=== PATIENT | female | born 1935 | race Caucasian/White ===

== ENCOUNTER 2019-10-20 00:32 | Inpatient (IN) | payer OTHER, MEDICAID ==
[~2019-10-20] VITALS: Ht 160 cm; Wt 70.5 kg
[2019-10-20] MEDS ORDERED: ONDANSETRON HCL 4MG/2ML INJ IV STA (00:52)
[2019-10-20] MEDS ORDERED: SODIUM CHLORIDE 0.9% 1,000 ML IV ONE (00:52)
[2019-10-20] MEDS ORDERED: FAMOTIDINE 20MG/2ML VIAL IV ONE (01:00)
[2019-10-20 01:12] LABS: CHLORIDE 100 mEq/L (98-107)
[2019-10-20 01:15] LABS: BASOPHILS % 0.3 % (0.0-2.0); EOSINOPHILS % 0.3 % (0.0-5.0); HEMATOCRIT. 41.7 % (36.0-48.0); MEAN CORPUSCULAR HEMOGLOBIN 29.3 pg (28.0-32.0); MEAN CORPUSCULAR VOLUME 87.4 fL (81.0-99.0); MEAN PLATELET VOLUME 8.6 fl (7.4-10.4); MONOCYTES % 3.8 % (2.0-8.0); NEUTROPHILS % 83.6 % (40.0-76.0); PLATELET 195 x1000/uL (130-400); RED BLOOD CELL COUNT 4.77 mill/uL (4.2-5.4); RED CELL DISTRIBUTION WIDTH 13.6 % (11.6-14.6)
[2019-10-20] MEDS ORDERED: PIPERACILLIN/TAZ 3.375G PREMIX 50 ML IV ONE ×2 (01:30→09:00)
[2019-10-20 01:48] LABS: CLARITY URINE CLEAR (CLEAR); COLOR URINE DARK YELLOW (YELLOW); KETONES URINE NEGATIVE (NEGATIVE); LEUKOCYTE ESTERASE URINE NEGATIVE (NEGATIVE); NITRITE URINE NEGATIVE (NEGATIVE); OCCULT BLOOD URINE NEGATIVE (NEGATIVE); PH URINE 6.5 (4.5-8.0); PROTEIN URINE TRACE (NEGATIVE); SPECIFIC GRAVITY URINE 1.022 (1.005-1.030)
[2019-10-20 01:52] LABS: INR 1.1; PROTHROMBIN TIME 11.7 sec (9.6-11.0)
[2019-10-20] MEDS ORDERED: SODIUM CHLORIDE 0.9% 1000ML BAG (SEPSIS BOLUS) IV ONE (02:15)
[2019-10-20] MEDS ORDERED: MORPHINE SULFATE 4 MG/ML CPJ (NOT FOR IM USE) IV ONE (02:30)
[2019-10-20] MEDS: MORPHINE SULFATE 2 MG/ML CPJ (NOT FOR IM USE) IV PRN ×2 (04:41→06:13)
[2019-10-20] MEDS ORDERED: HYDRALAZINE 20MG/ML VIAL IV PRN (09:00)
[2019-10-20] MEDS ORDERED: ONDANSETRON HCL 4MG/2ML INJ IV PRN (09:00)
[2019-10-20] MEDS ORDERED: DEXTROSE 50% WATER 50ML SYRINGE IV PRN (09:00)
[2019-10-20] MEDS: SODIUM CHLORIDE 0.9% 1,000 ML IV SCH ×2 (10:00→18:02)
[2019-10-20] MEDS: BLOOD SUGAR DIAGNOSTIC STRIP TEST SCH ×4 (10:00→21:59)
[2019-10-20] MEDS: PANTOPRAZOLE SODIUM 40 MG/VIAL IV SCH (11:18)
[2019-10-20 12:09] LABS: HEPATITIS B SURFACE ANTIGEN NEGATIVE
[2019-10-20 12:30] VITALS: BP 138/68
[2019-10-20 12:39] LABS: HEPATITIS A AB IGM NEGATIVE (NEGATIVE)
[2019-10-20] MEDS: INSULIN LISPRO 100 UNITS/ML SUBCUT SCH ×3 (13:00→21:00)
[2019-10-20] MEDS ORDERED: LORAZEPAM 2MG/ML CPJ IM ONE (13:30)
[2019-10-20] MEDS: PIPERACILLIN/TAZOBACTAM 3.375 G in DEXT 5% WATER 100 ML IV SCH ×3 (14:00→23:32)
[2019-10-20] MEDS ORDERED: METF500S7 PO (14:39)
[2019-10-20] MEDS ORDERED: QUET25TA34 PO (14:39)
[2019-10-20] MEDS ORDERED: LOSA1TAB37 PO (14:39)
[2019-10-20] MEDS ORDERED: AMLO10TA80 PO (14:39)
[2019-10-20] MEDS ORDERED: PIPERACILLIN/TAZOBACTAM 3.375 G in DEXT 5% WATER 100 ML IV SCH (15:00)
[2019-10-20 16:00] VITALS: BP 142/59
[2019-10-20 20:00] VITALS: BP 133/68
[2019-10-20] MEDS: QUETIAPINE FUMARATE 25MG TABLET PO PRN (23:32)
[2019-10-21] VITALS: BP 139/67
[2019-10-21 04:00] VITALS: BP 144/85
[2019-10-21] MEDS: SODIUM CHLORIDE 0.9% 1,000 ML IV SCH ×2 (04:12→14:05)
[2019-10-21] MEDS: PIPERACILLIN/TAZOBACTAM 3.375 G in DEXT 5% WATER 100 ML IV SCH ×3 (05:28→18:17)
[2019-10-21 07:03] LABS: BASOPHILS % 0.1 % (0.0-2.0); CHLORIDE 106 mEq/L (98-107); EOSINOPHILS % 0.3 % (0.0-5.0); HEMATOCRIT. 37.3 % (36.0-48.0); HEMOGLOBIN. 12.6 g/dL (12.0-16.0); LYMPHOCYTES % 13.1 % (20.0-50.0); MEAN CORPUSCULAR HEMOGLOBIN 29.5 pg (28.0-32.0); MEAN CORPUSCULAR VOLUME 87.5 fL (81.0-99.0); MEAN PLATELET VOLUME 8.9 fl (7.4-10.4); MONOCYTES % 5.7 % (2.0-8.0); NEUTROPHILS % 80.8 % (40.0-76.0); PLATELET 167 x1000/uL (130-400); RED BLOOD CELL COUNT 4.26 mill/uL (4.2-5.4); RED CELL DISTRIBUTION WIDTH 13.8 % (11.6-14.6)
[2019-10-21] MEDS: BLOOD SUGAR DIAGNOSTIC STRIP TEST SCH ×4 (07:05→21:19)
[2019-10-21] MEDS: INSULIN LISPRO 100 UNITS/ML SUBCUT SCH ×4 (07:05→21:00)
[2019-10-21 08:00] VITALS: BP 105/66
[2019-10-21] MEDS ORDERED: POTASSIUM CHLORIDE 20MEQ TABLET SR PO NR (08:15)
[2019-10-21] MEDS: LORAZEPAM 2MG/ML CPJ IV PRN ×2 (11:31→17:53)
[2019-10-21 12:00] VITALS: BP 114/59
[2019-10-21] MEDS: PANTOPRAZOLE SODIUM 40 MG/VIAL IV SCH (13:07)
[2019-10-21] MEDS ORDERED: POTASSIUM CHLORIDE INJ 40 MEQ in DEXT 5% WATER 250 ML IV NR (14:00)
[2019-10-21 16:00] VITALS: BP 121/67
[2019-10-21] MEDS: METRONIDAZOLE 500 MG PREMIX 100 ML IV SCH (18:17)
[2019-10-21 20:00] VITALS: BP 154/84
[2019-10-22] VITALS (7 sets, daily range): BP systolic 124–210; BP diastolic 62–131
[2019-10-22] MEDS: PIPERACILLIN/TAZOBACTAM 3.375 G in DEXT 5% WATER 100 ML IV SCH ×4 (00:39→18:14)
[2019-10-22] MEDS: METRONIDAZOLE 500 MG PREMIX 100 ML IV SCH ×3 (02:10→17:38)
[2019-10-22] MEDS: SODIUM CHLORIDE 0.9% 1,000 ML IV SCH ×2 (02:10→10:25)
[2019-10-22] MEDS: BLOOD SUGAR DIAGNOSTIC STRIP TEST SCH ×4 (06:21→21:29)
[2019-10-22] MEDS: INSULIN LISPRO 100 UNITS/ML SUBCUT SCH ×4 (06:21→21:00)
[2019-10-22 07:20] LABS: CHLORIDE 111 mEq/L (98-107)
[2019-10-22 07:45] LABS: BASOPHILS % 0.2 % (0.0-2.0); EOSINOPHILS % 2.2 % (0.0-5.0); HEMATOCRIT. 35.1 % (36.0-48.0); HEMOGLOBIN. 11.9 g/dL (12.0-16.0); MEAN CORPUSCULAR HEMOGLOBIN 29.8 pg (28.0-32.0); MEAN CORPUSCULAR VOLUME 87.6 fL (81.0-99.0); MEAN PLATELET VOLUME 8.6 fl (7.4-10.4); MONOCYTES % 5.6 % (2.0-8.0); PLATELET 176 x1000/uL (130-400); RED CELL DISTRIBUTION WIDTH 14.1 % (11.6-14.6)
[2019-10-22] MEDS: PANTOPRAZOLE SODIUM 40 MG/VIAL IV SCH (08:54)
[2019-10-22] MEDS: LORAZEPAM 2MG/ML CPJ IV PRN ×2 (08:54→14:57)
[2019-10-22 13:02] LABS: AMYLASE 193 IU/L (25-115)
[2019-10-22] MEDS: QUETIAPINE FUMARATE 25MG TABLET PO PRN (23:55)
[2019-10-23] VITALS (7 sets, daily range): BP systolic 126–189; BP diastolic 50–101
[2019-10-23] MEDS: PIPERACILLIN/TAZOBACTAM 3.375 G in DEXT 5% WATER 100 ML IV SCH ×4 (00:03→17:23)
[2019-10-23] MEDS: METRONIDAZOLE 500 MG PREMIX 100 ML IV SCH ×3 (01:27→16:17)
[2019-10-23] MEDS: LORAZEPAM 2MG/ML CPJ IV PRN ×2 (01:39→20:34)
[2019-10-23] MEDS: INSULIN LISPRO 100 UNITS/ML SUBCUT SCH ×4 (05:45→21:00)
[2019-10-23] MEDS: BLOOD SUGAR DIAGNOSTIC STRIP TEST SCH ×4 (05:45→21:15)
[2019-10-23 06:12] LABS: CHLORIDE 113 mEq/L (98-107)
[2019-10-23 06:41] LABS: BASOPHILS % 0.3 % (0.0-2.0); HEMATOCRIT. 35.7 % (36.0-48.0); HEMOGLOBIN. 12.1 g/dL (12.0-16.0); LYMPHOCYTES % 16.6 % (20.0-50.0); MEAN CORPUSCULAR HEMOGLOBIN 29.7 pg (28.0-32.0); MEAN CORPUSCULAR VOLUME 87.4 fL (81.0-99.0); MEAN PLATELET VOLUME 8.5 fl (7.4-10.4); MONOCYTES % 5.3 % (2.0-8.0); NEUTROPHILS % 76.8 % (40.0-76.0); PLATELET 181 x1000/uL (130-400); RED BLOOD CELL COUNT 4.09 mill/uL (4.2-5.4); RED CELL DISTRIBUTION WIDTH 14.3 % (11.6-14.6)
[2019-10-23] MEDS: PANTOPRAZOLE SODIUM 40 MG/VIAL IV SCH (08:14)
[2019-10-23] MEDS ORDERED: CLONIDINE HCL 0.1MG/24HR PATCH TD SCH (16:00)
[2019-10-23] MEDS: SODIUM CHLORIDE 0.9% 1,000 ML IV SCH (16:18)
[2019-10-24] VITALS: BP 160/92
[2019-10-24] MEDS: SODIUM CHLORIDE 0.9% 1,000 ML IV SCH ×2 (01:03→13:57)
[2019-10-24] MEDS: PIPERACILLIN/TAZOBACTAM 3.375 G in DEXT 5% WATER 100 ML IV SCH ×4 (01:03→17:30)
[2019-10-24] MEDS: METRONIDAZOLE 500 MG PREMIX 100 ML IV SCH ×3 (01:59→18:04)
[2019-10-24 04:00] VITALS: BP 163/91
[2019-10-24] MEDS: LORAZEPAM 2MG/ML CPJ IV PRN (04:05)
[2019-10-24 04:33] VITALS: BP 145/85
[2019-10-24 06:11] LABS: CHLORIDE 107 mEq/L (98-107)
[2019-10-24] MEDS: INSULIN LISPRO 100 UNITS/ML SUBCUT SCH ×4 (06:19→21:00)
[2019-10-24] MEDS: BLOOD SUGAR DIAGNOSTIC STRIP TEST SCH ×4 (06:19→21:00)
[2019-10-24 06:44] LABS: BASOPHILS % 0.3 % (0.0-2.0); HEMATOCRIT. 38.5 % (36.0-48.0); LYMPHOCYTES % 9.5 % (20.0-50.0); MEAN CORPUSCULAR HEMOGLOBIN 29.3 pg (28.0-32.0); MEAN CORPUSCULAR VOLUME 86.9 fL (81.0-99.0); MEAN PLATELET VOLUME 8.1 fl (7.4-10.4); MONOCYTES % 8.1 % (2.0-8.0); NEUTROPHILS % 81.1 % (40.0-76.0); PLATELET 196 x1000/uL (130-400); RED BLOOD CELL COUNT 4.43 mill/uL (4.2-5.4); RED CELL DISTRIBUTION WIDTH 14.3 % (11.6-14.6)
[2019-10-24 08:00] VITALS: BP 172/94
[2019-10-24] MEDS: PANTOPRAZOLE SODIUM 40 MG/VIAL IV SCH (09:06)
[2019-10-24] MEDS ORDERED: DILTIAZEM HCL 5MG/ML 5ML VIAL IV PRN (11:15)
[2019-10-24 12:00] VITALS: BP 158/77
[2019-10-24] MEDS ORDERED: POTASSIUM CHLORIDE INJ 40 MEQ in DEXT 5% WATER 250 ML IV NR (12:30)
[2019-10-24] MEDS ORDERED: CLONIDINE HCL 0.3MG/24HR PATCH TD SCH (13:00)
[2019-10-24 20:00] VITALS: BP 152/84
[2019-10-24] MEDS: DEXT 5%/0.45% NACL KCL 20MEQ/L 1,000 ML IV SCH (20:00)
[2019-10-25] VITALS: BP 130/75
[2019-10-25] MEDS: PIPERACILLIN/TAZOBACTAM 3.375 G in DEXT 5% WATER 100 ML IV SCH ×3 (00:31→11:59)
[2019-10-25] MEDS: METRONIDAZOLE 500 MG PREMIX 100 ML IV SCH ×3 (01:34→17:00)
[2019-10-25 04:00] VITALS: BP 97/41
[2019-10-25] MEDS: DEXT 5%/0.45% NACL KCL 20MEQ/L 1,000 ML IV SCH ×2 (06:35→17:04)
[2019-10-25] MEDS: INSULIN LISPRO 100 UNITS/ML SUBCUT SCH ×4 (06:35→21:40)
[2019-10-25] MEDS: BLOOD SUGAR DIAGNOSTIC STRIP TEST SCH ×4 (06:35→21:32)
[2019-10-25 07:44] LABS: BASOPHILS % 0.3 % (0.0-2.0); HEMATOCRIT. 37.1 % (36.0-48.0); HEMOGLOBIN. 12.6 g/dL (12.0-16.0); LYMPHOCYTES % 30.1 % (20.0-50.0); MEAN CORPUSCULAR VOLUME 88.3 fL (81.0-99.0); MEAN PLATELET VOLUME 8.1 fl (7.4-10.4); MONOCYTES % 11.2 % (2.0-8.0); NEUTROPHILS % 55.4 % (40.0-76.0); PLATELET 199 x1000/uL (130-400); RED BLOOD CELL COUNT 4.21 mill/uL (4.2-5.4); RED CELL DISTRIBUTION WIDTH 14.4 % (11.6-14.6)
[2019-10-25 07:56] LABS: CHLORIDE 110 mEq/L (98-107)
[2019-10-25 08:00] VITALS: BP 123/63
[2019-10-25] MEDS: PANTOPRAZOLE SODIUM 40 MG/VIAL IV SCH (09:52)
[2019-10-25 12:00] VITALS: BP 140/62
[2019-10-25] MEDS ORDERED: LIDOCAINE HCL 1% 20ML VIAL (Pyxis) INJ ONE (15:33)
[2019-10-25] MEDS ORDERED: SKIN ADHESIVE 0.7 GM EA TOP ONE (15:33)
[2019-10-25] MEDS ORDERED: BUPIVACAINE HCL/PF 0.5% (5MG/ML) 10ML ONE (15:33)
[2019-10-25] MEDS ORDERED: MIDAZOLAM HCL 2 MG/2 ML VIAL ONE (17:42)
[2019-10-25] MEDS ORDERED: ETOMIDATE 2MG/ML 10ML VIAL IV ONE (17:42)
[2019-10-25] MEDS ORDERED: LIDOCAINE HCL/PF 1% 10 MG/ML 5ML VIAL ONE (17:42)
[2019-10-25] MEDS ORDERED: FENTANYL CITRATE/PF 50MCG/ML 2ML VIAL ONE (17:42)
[2019-10-25] MEDS ORDERED: ROCURONIUM BROMIDE 10MG/ML VIAL 5ML IV ONE (17:50)
[2019-10-25] MEDS ORDERED: SUCCINYLCHOLINE CHLORIDE 200MG/10ML IV ONE ×2 (17:56→18:03)
[2019-10-25] MEDS ORDERED: PHENYLEPHRINE HCL 10 MG/ML 1ML (IV VIAL) IV ONE (18:03)
[2019-10-25] MEDS ORDERED: LIDOCAINE HCL 2% JELLY 5ML ONE (18:06)
[2019-10-25] MEDS ORDERED: CEFAZOLIN SODIUM 1000MG/VIAL ONE (18:14)
[2019-10-25] MEDS ORDERED: EPHEDRINE SULFATE 50MG/ML VIAL ONE (18:21)
[2019-10-25] MEDS ORDERED: SODIUM CHLORIDE 0.9% 10ML VIAL ONE ×2 (18:21→18:49)
[2019-10-25] MEDS ORDERED: GLYCOPYRROLATE 0.2 MG/ML 2ML VIAL ONE (18:22)
[2019-10-25] MEDS ORDERED: DEXAMETHASONE 4MG/ML 1ML VIAL ONE (18:33)
[2019-10-25] MEDS ORDERED: ESMOLOL HCL 10MG/ML 10ML VIAL IV ONE (18:34)
[2019-10-25] MEDS ORDERED: LABETALOL HCL 5MG/ML VIAL 20ML IV ONE (18:39)
[2019-10-25] MEDS ORDERED: HYDRALAZINE 20MG/ML VIAL ONE (18:49)
[2019-10-25] MEDS ORDERED: ONDANSETRON HCL 4MG/2ML INJ ONE (19:44)
[2019-10-25] MEDS ORDERED: NEOSTIGMINE METHYLSULFATE 1MG/ML 10 ML VIAL ONE (19:46)
[2019-10-25] MEDS ORDERED: HYDROMORPHONE HCL/PF 2MG/ML CPJ IV PRN (20:00)
[2019-10-25] MEDS ORDERED: HYDROMORPHONE HCL/PF 2MG/ML CPJ ONE (20:05)
[2019-10-25] MEDS ORDERED: MEPERIDINE HCL/PF 25MG/ML CPJ IV PRN (20:15)
[2019-10-25 21:20] VITALS: BP 129/60
[2019-10-26] VITALS: BP 126/58
[2019-10-26] MEDS: METRONIDAZOLE 500 MG PREMIX 100 ML IV SCH ×2 (00:27→08:27)
[2019-10-26] MEDS: DEXT 5%/0.45% NACL KCL 20MEQ/L 1,000 ML IV SCH ×2 (01:00→11:52)
[2019-10-26 04:00] VITALS: BP 131/70
[2019-10-26 05:31] LABS: HEMATOCRIT. 37.3 % (36.0-48.0); HEMOGLOBIN. 12.4 g/dL (12.0-16.0); MEAN CORPUSCULAR HEMOGLOBIN 29.3 pg (28.0-32.0); MEAN PLATELET VOLUME 8.5 fl (7.4-10.4); PLATELET 212 x1000/uL (130-400); RED BLOOD CELL COUNT 4.23 mill/uL (4.2-5.4); RED CELL DISTRIBUTION WIDTH 14.8 % (11.6-14.6)
[2019-10-26 05:42] LABS: CHLORIDE 113 mEq/L (98-107)
[2019-10-26] MEDS: BLOOD SUGAR DIAGNOSTIC STRIP TEST SCH ×4 (05:56→21:11)
[2019-10-26] MEDS: INSULIN LISPRO 100 UNITS/ML SUBCUT SCH ×4 (06:18→21:00)
[2019-10-26 08:00] VITALS: BP 129/93
[2019-10-26] MEDS: PANTOPRAZOLE SODIUM 40 MG/VIAL IV SCH (08:27)
[2019-10-26] MEDS: MORPHINE SULFATE 2 MG/ML CPJ (NOT FOR IM USE) IV PRN ×2 (08:28→18:25)
[2019-10-26] MEDS ORDERED: MORPHINE SULFATE 2 MG/ML CPJ (NOT FOR IM USE) IV NR ×2 (11:45→21:30)
[2019-10-26 12:00] VITALS: BP 124/52
[2019-10-26] MEDS ORDERED: LORAZEPAM 2MG/ML CPJ IV PRN (13:15)
[2019-10-26] MEDS ORDERED: AMOX1TAB16 MT (14:08)
[2019-10-26] MEDS: PIPERACILLIN/TAZOBACTAM 3.375 G in DEXT 5% WATER 100 ML IV SCH ×2 (15:51→21:44)
[2019-10-26 15:55] LABS: BASOPHILS % 0.1 % (0.0-2.0); HEMATOCRIT. 35.7 % (36.0-48.0); HEMOGLOBIN. 11.9 g/dL (12.0-16.0); MEAN CORPUSCULAR HEMOGLOBIN 29.6 pg (28.0-32.0); MEAN CORPUSCULAR VOLUME 88.8 fL (81.0-99.0); MEAN PLATELET VOLUME 8.2 fl (7.4-10.4); MONOCYTES % 8.9 % (2.0-8.0); PLATELET 198 x1000/uL (130-400); RED BLOOD CELL COUNT 4.02 mill/uL (4.2-5.4); RED CELL DISTRIBUTION WIDTH 14.6 % (11.6-14.6)
[2019-10-26 16:00] VITALS: BP 123/66
[2019-10-26 20:00] VITALS: BP 154/86
[2019-10-26] MEDS: LORAZEPAM 2MG/ML CPJ IV PRN (20:36)
[2019-10-26] MEDS: QUETIAPINE FUMARATE 25MG TABLET PO PRN (23:25)
[2019-10-27] VITALS (7 sets, daily range): BP systolic 125–153; BP diastolic 60–87
[2019-10-27] MEDS: DEXT 5%/0.45% NACL KCL 20MEQ/L 1,000 ML IV SCH ×2 (00:48→16:31)
[2019-10-27] MEDS: PIPERACILLIN/TAZOBACTAM 3.375 G in DEXT 5% WATER 100 ML IV SCH ×2 (03:53→09:00)
[2019-10-27] MEDS: BLOOD SUGAR DIAGNOSTIC STRIP TEST SCH ×4 (06:35→21:00)
[2019-10-27] MEDS: INSULIN LISPRO 100 UNITS/ML SUBCUT SCH ×4 (06:44→21:00)
[2019-10-27 07:04] LABS: BASOPHILS % 0.2 % (0.0-2.0); EOSINOPHILS % 0.2 % (0.0-5.0); HEMATOCRIT. 36.9 % (36.0-48.0); HEMOGLOBIN. 12.3 g/dL (12.0-16.0); LYMPHOCYTES % 16.1 % (20.0-50.0); MEAN CORPUSCULAR HEMOGLOBIN 29.3 pg (28.0-32.0); MEAN CORPUSCULAR VOLUME 87.7 fL (81.0-99.0); MEAN PLATELET VOLUME 8.4 fl (7.4-10.4); MONOCYTES % 7.6 % (2.0-8.0); NEUTROPHILS % 75.9 % (40.0-76.0); PLATELET 179 x1000/uL (130-400); RED BLOOD CELL COUNT 4.21 mill/uL (4.2-5.4); RED CELL DISTRIBUTION WIDTH 14.7 % (11.6-14.6)
[2019-10-27 07:26] LABS: CHLORIDE 109 mEq/L (98-107)
[2019-10-27 08:49] LABS: PLATELET ESTIMATE NORMAL
[2019-10-27] MEDS: PANTOPRAZOLE SODIUM 40 MG/VIAL IV SCH (08:56)
[2019-10-27] MEDS ORDERED: POTASSIUM CHLORIDE 20MEQ TABLET SR PO SCH (09:45)
[2019-10-27] MEDS ORDERED: METOPROLOL TARTRATE 25MG TABLET PO SCH (09:45)
[2019-10-27] MEDS: MORPHINE SULFATE 2 MG/ML CPJ (NOT FOR IM USE) IV PRN ×2 (09:54→15:32)
[2019-10-27] MEDS ORDERED: METO-539 MT (11:18)
[2019-10-27] MEDS ORDERED: METOPROLOL TARTRATE 50MG TABLET PO SCH (11:30)
[2019-10-27] MEDS: AMLODIPINE 2.5MG TABLET PO SCH ×2 (11:30→11:50)
[2019-10-27 12:33] LABS: HEMATOCRIT. 35.5 % (36.0-48.0); HEMOGLOBIN. 11.9 g/dL (12.0-16.0); MEAN CORPUSCULAR HEMOGLOBIN 29.3 pg (28.0-32.0); MEAN CORPUSCULAR VOLUME 87.3 fL (81.0-99.0); PLATELET 192 x1000/uL (130-400); RED BLOOD CELL COUNT 4.07 mill/uL (4.2-5.4); RED CELL DISTRIBUTION WIDTH 14.3 % (11.6-14.6)
[2019-10-27 13:48] LABS: PLATELET ESTIMATE NORMAL
[2019-10-27] MEDS ORDERED: LEVOFLOXACIN 500MG PREMIX 100 ML IV SCH (15:00)
[2019-10-27] MEDS: METRONIDAZOLE 500 MG PREMIX 100 ML IV SCH ×2 (15:16→22:09)
[2019-10-27] MEDS: LORAZEPAM 2MG/ML CPJ IV PRN (18:53)
[2019-10-28] VITALS: BP 142/86
[2019-10-28] MEDS: METOPROLOL TARTRATE 50MG TABLET PO SCH ×3 (00:24→20:31)
[2019-10-28] MEDS: AMLODIPINE 2.5MG TABLET PO SCH ×2 (00:24→08:58)
[2019-10-28] MEDS: DEXT 5%/0.45% NACL KCL 20MEQ/L 1,000 ML IV SCH ×2 (00:26→10:10)
[2019-10-28] MEDS: MORPHINE SULFATE 2 MG/ML CPJ (NOT FOR IM USE) IV PRN ×3 (01:24→16:23)
[2019-10-28 04:00] VITALS: BP 151/76
[2019-10-28] MEDS: LORAZEPAM 2MG/ML CPJ IV PRN (05:20)
[2019-10-28] MEDS: METRONIDAZOLE 500 MG PREMIX 100 ML IV SCH ×3 (05:21→20:30)
[2019-10-28 06:17] LABS: BASOPHILS % 0.2 % (0.0-2.0); EOSINOPHILS % 0.3 % (0.0-5.0); HEMATOCRIT. 37.8 % (36.0-48.0); HEMOGLOBIN. 12.6 g/dL (12.0-16.0); LYMPHOCYTES % 14.3 % (20.0-50.0); MEAN CORPUSCULAR HEMOGLOBIN 29.3 pg (28.0-32.0); MEAN CORPUSCULAR VOLUME 87.5 fL (81.0-99.0); MEAN PLATELET VOLUME 7.9 fl (7.4-10.4); MONOCYTES % 6.6 % (2.0-8.0); NEUTROPHILS % 78.6 % (40.0-76.0); PLATELET 215 x1000/uL (130-400); RED BLOOD CELL COUNT 4.32 mill/uL (4.2-5.4); RED CELL DISTRIBUTION WIDTH 14.5 % (11.6-14.6)
[2019-10-28 06:22] LABS: CHLORIDE 111 mEq/L (98-107)
[2019-10-28] MEDS: BLOOD SUGAR DIAGNOSTIC STRIP TEST SCH ×4 (06:44→20:31)
[2019-10-28] MEDS: INSULIN LISPRO 100 UNITS/ML SUBCUT SCH ×4 (06:45→20:31)
[2019-10-28 08:00] VITALS: BP 155/80
[2019-10-28] MEDS: PANTOPRAZOLE SODIUM 40 MG/VIAL IV SCH (08:58)
[2019-10-28] MEDS: QUETIAPINE FUMARATE 25MG TABLET PO SCH (11:43)
[2019-10-28 12:00] VITALS: BP 148/72
[2019-10-28] MEDS: LEVOFLOXACIN 250MG PREMIX 50 ML IV SCH (15:02)
[2019-10-28 16:00] VITALS: BP 143/68
[2019-10-28 20:00] VITALS: BP 154/76
[2019-10-28] MEDS: AMLODIPINE 5MG TABLET PO SCH (20:31)
[2019-10-29] VITALS: BP 131/59
[2019-10-29 04:00] VITALS: BP 157/67
[2019-10-29] MEDS: METRONIDAZOLE 500 MG PREMIX 100 ML IV SCH ×3 (05:17→23:13)
[2019-10-29] MEDS: DEXT 5%/0.45% NACL KCL 20MEQ/L 1,000 ML IV SCH (05:18)
[2019-10-29] MEDS: BLOOD SUGAR DIAGNOSTIC STRIP TEST SCH ×4 (05:56→20:47)
[2019-10-29] MEDS: INSULIN LISPRO 100 UNITS/ML SUBCUT SCH ×4 (05:56→20:47)
[2019-10-29 07:13] LABS: BASOPHILS % 0.2 % (0.0-2.0); EOSINOPHILS % 0.8 % (0.0-5.0); HEMATOCRIT. 33.8 % (36.0-48.0); HEMOGLOBIN. 11.5 g/dL (12.0-16.0); LYMPHOCYTES % 14.5 % (20.0-50.0); MEAN CORPUSCULAR HEMOGLOBIN 29.7 pg (28.0-32.0); MEAN CORPUSCULAR VOLUME 86.9 fL (81.0-99.0); MEAN PLATELET VOLUME 7.9 fl (7.4-10.4); MONOCYTES % 7.2 % (2.0-8.0); NEUTROPHILS % 77.3 % (40.0-76.0); PLATELET 232 x1000/uL (130-400); RED BLOOD CELL COUNT 3.88 mill/uL (4.2-5.4); RED CELL DISTRIBUTION WIDTH 14.4 % (11.6-14.6)
[2019-10-29 07:46] LABS: CHLORIDE 113 mEq/L (98-107)
[2019-10-29 08:00] VITALS: BP 154/70
[2019-10-29] MEDS ORDERED: METOPROLOL TARTRATE 50MG TABLET PO SCH (10:00)
[2019-10-29] MEDS: PANTOPRAZOLE SODIUM 40 MG/VIAL IV SCH (10:01)
[2019-10-29] MEDS: AMLODIPINE 5MG TABLET PO SCH ×2 (10:01→20:46)
[2019-10-29] MEDS: QUETIAPINE FUMARATE 25MG TABLET PO SCH (10:01)
[2019-10-29] MEDS ORDERED: METOPROLOL TARTRATE 25MG TABLET PO NR (10:15)
[2019-10-29 12:00] VITALS: BP 118/65
[2019-10-29] MEDS: MORPHINE SULFATE 2 MG/ML CPJ (NOT FOR IM USE) IV PRN (13:24)
[2019-10-29] MEDS: LEVOFLOXACIN 250MG PREMIX 50 ML IV SCH (15:01)
[2019-10-29 16:00] VITALS: BP 117/63
[2019-10-29 20:00] VITALS: BP 146/79
[2019-10-29] MEDS: METOPROLOL TARTRATE 25MG TABLET PO SCH (20:45)
[2019-10-29] MEDS: LORAZEPAM 2MG/ML CPJ IV PRN (20:48)
[2019-10-30] VITALS: BP 153/73
[2019-10-30 04:00] VITALS: BP 139/63
[2019-10-30] MEDS: BLOOD SUGAR DIAGNOSTIC STRIP TEST SCH ×2 (05:38→12:15)
[2019-10-30] MEDS: METRONIDAZOLE 500 MG PREMIX 100 ML IV SCH (05:39)
[2019-10-30] MEDS: INSULIN LISPRO 100 UNITS/ML SUBCUT SCH ×2 (06:16→12:15)
[2019-10-30 08:00] VITALS: BP 157/74
[2019-10-30] MEDS: QUETIAPINE FUMARATE 25MG TABLET PO SCH (08:56)
[2019-10-30] MEDS: METOPROLOL TARTRATE 25MG TABLET PO SCH (08:56)
[2019-10-30] MEDS: PANTOPRAZOLE SODIUM 40 MG/VIAL IV SCH (08:56)
[2019-10-30] MEDS: AMLODIPINE 5MG TABLET PO SCH (08:56)
[2019-10-30 11:06] LABS: BASOPHILS % 0.3 % (0.0-2.0); EOSINOPHILS % 1.2 % (0.0-5.0); HEMATOCRIT. 36.5 % (36.0-48.0); HEMOGLOBIN. 12.3 g/dL (12.0-16.0); LYMPHOCYTES % 13.8 % (20.0-50.0); MEAN CORPUSCULAR HEMOGLOBIN 29.5 pg (28.0-32.0); MEAN CORPUSCULAR VOLUME 87.4 fL (81.0-99.0); MEAN PLATELET VOLUME 7.5 fl (7.4-10.4); MONOCYTES % 7.1 % (2.0-8.0); NEUTROPHILS % 77.6 % (40.0-76.0); PLATELET 303 x1000/uL (130-400); RED BLOOD CELL COUNT 4.18 mill/uL (4.2-5.4); RED CELL DISTRIBUTION WIDTH 14.2 % (11.6-14.6)
[2019-10-30 12:00] VITALS: BP 143/68
[2019-10-30 12:24] LABS: CHLORIDE 110 mEq/L (98-107)
[2019-10-30] MEDS: MORPHINE SULFATE 2 MG/ML CPJ (NOT FOR IM USE) IV PRN (12:36)
[2019-10-30 13:08] VITALS: BP 143/68
== END 2019-10-30 12:45 | disposition home or self-care (01) | DRG 853 ==
LOC: ER 00:32 → 5WST 03:40 → ENRESERV 11:15 → 5WST 16:09
PROVIDERS: ADMIT Internal Medicine; ATTEND Internal Medicine
PROC: 0FT44ZZ Resection of Gallbladder, Percutaneous Endoscopic Approach (ICD-10-PCS; principal; 2019-10-25)
DX: A41.9 Sepsis, unspecified organism (principal); K85.10 Biliary acute pancreatitis without necrosis or infection; I50.43 Acute on chronic combined systolic (congestive) and diastolic (congestive) heart failure; J18.9 Pneumonia, unspecified organism; E87.2 Acidosis; G93.49 Other encephalopathy; K80.12 Calculus of gallbladder with acute and chronic cholecystitis without obstruction; E11.65 Type 2 diabetes mellitus with hyperglycemia; E87.6 Hypokalemia; I27.20 Pulmonary hypertension, unspecified; I11.0 Hypertensive heart disease with heart failure; R74.0 Nonspecific elevation of levels of transaminase and lactic acid dehydrogenase [LDH]; K57.30 Diverticulosis of large intestine without perforation or abscess without bleeding; M48.061 Spinal stenosis, lumbar region without neurogenic claudication; F02.80 Dementia in other diseases classified elsewhere, unspecified severity, without behavioral disturbance, psychotic disturbance, mood disturbance, and anxiety; Z20.828 Contact with and (suspected) exposure to other viral communicable diseases; G30.9 Alzheimer's disease, unspecified; K82.8 Other specified diseases of gallbladder; N28.1 Cyst of kidney, acquired; Z78.1 Physical restraint status; Z79.84 Long term (current) use of oral hypoglycemic drugs
CPT/HCPCS: 36415; 71045; 74176; 74181; 76604; 76700; 76705; 78227; 80048; 80053; 80076; 81003; 82150; 82962; 83036; 83605; 83880; 84145; 84484; 85025; 86705; 86709; 86803; 86850; 86900; 87340; 88304; 93005; 93306; 97162; 97530; 99291; A9537; C9113; J0330; J0360; J0690; J1100; J1170; J1815; J1956; J2060; J2175; J2250; J2270; J2370; J2405; J2543; J2710; J3010; J3480; J3490; J7030; J7060; U0003-CS